=== PATIENT | male | born 1960 | race Caucasian/White ===

== ENCOUNTER 2017-06-13 06:05 | Day surgery (SDC) | payer OTHER ==
[~2017-06-13] VITALS: Ht 188 cm; Wt 108.9 kg
[~2017-06-13 06:05] MED LIST: ASPIRIN EC325 MG PO; CARVEDILOL25 MG PO; HYDROCHLOROTH12.5 MG PO; LISINOPRIL20 MG PO; SIMVASTATIN40 MG PO
--- NOTE | 2017-06-13 08:16 | NUR ---
06/13/17 0816 Yennifer Stokes report from video game animator.
--- NOTE | 2017-06-16 08:06 | OR ---
[facility] [address], [place] [address] Signed DATE OF OPERATION: 06/13/2017 SURGEON: Linda Louis MD PREOPERATIVE DIAGNOSIS: Colon surveillance. POSTOPERATIVE DIAGNOSIS: Hyperplastic polyps x2, minimal diverticular changes sigmoid. PROCEDURE: Total colonoscopy to cecum with cold morcellation polypectomy x2. ANESTHESIA: Intravenous sedation propofol infusion. Nuris Garcias CRNA INDICATION: This 57-year-old white man is a patient of Dr. Colon, and in reasonable health at this time. He has a history of ventricular fibrillation arrest with resuscitation and now has an AICD. The device has never discharged. He is asymptomatic in that regard. He has had no blood per rectum, diarrhea, or constipation problems. He is here for surveillance colonoscopy. The risks of bleeding, infection, and perforation were reviewed with him. He understands and wished to proceed. FINDINGS: The prep was good. Complete colonoscopy was undertaken to the cecum with good visualization of the cecum. There were few diverticula of the sigmoid and left colon and two small polyps probably hyperplastic, one at 25 cm, the other at 50 cm, both were excised with cold morcellation technique. DESCRIPTION OF PROCEDURE: The patient was brought to the endoscopy suite and placed in lateral decubitus position, given intravenous sedation by the space operations with propofol infusion. Full cardiopulmonary monitoring was maintained. The patient demonstrated findings suggestive of sleep apnea. Digital rectal exam was undertaken showing no abnormality. An Olympus video colonoscope was passed into the rectum and manipulated throughout the colon. The prep was quite good. At approximately 50 cm, a small sessile polyp was noted. This was excised with cold morcellation technique. The scope was advanced beyond this to about Electronically Signed By: LINDA LOUIS MD 06/16/17 0806 PATIENT NAME: ELLY BARRERA OPERATIVE REPORT DATE OF : 64 PHYSICIAN: LINDA LOUIS MD REPORT #: [id number] REPORT IS CONFIDENTIAL AND NOT TO BE RELEASED WITHOUT AUTHORIZATION [facility] [address], [place] [address] Signed the hepatic flexure, where progress upon advancing the scope was diminished. He was rotated and leaned back a bit, which allowed for abdominal wall stabilization and the scope was then easily passed to the cecum. The cecum appeared entirely normal as did the ileocecal valve. The scope was withdrawn from that point. Examination throughout showed no sign of abnormality other than a few scattered diverticula of the sigmoid and at 25 cm, a small hyperplastic-appearing polyp. This was excised with cold morcellation technique. Further withdrawal of scope allowed for retroflexed view in the rectum, which was normal. Scope was removed and the patient was taken to recovery in good condition. CONCLUDING DIAGNOSIS: Two small hyperplastic polyps. PLAN: Recommend repeat colonoscopy in 7 years or sooner if clinically indicated. He will return to the ongoing care of Dr. Colon. The patient's and the patient will be counseled to consider for evaluation of sleep apnea given his physiology during the course of this procedure and his body habitus. MD CHELSY Paul/RYAN /[id number] cc: Bilile Colon MD Electronically Signed By: LINDA LOUIS MD 06/16/17 0806 PATIENT NAME: ELLY BARRERA OPERATIVE REPORT DATE OF : 64 PHYSICIAN: LINDA LOUIS MD REPORT #: [id number] REPORT IS CONFIDENTIAL AND NOT TO BE RELEASED WITHOUT AUTHORIZATION
== END 2017-06-13 09:50 | disposition home or self-care (01) ==
LOC: DS 06:05 → OPS 06:05 → DS 08:30 → OPS 08:30
PROVIDERS: Surgery
PROC: 0DBE8ZX Excision of Large Intestine, Via Natural or Artificial Opening Endoscopic, Diagnostic (ICD-10-PCS; principal; 2017-06-13 06:45)
DX: Z12.11 Encounter for screening for malignant neoplasm of colon (principal); K63.5 Polyp of colon; K57.30 Diverticulosis of large intestine without perforation or abscess without bleeding; I49.01 Ventricular fibrillation
CPT/HCPCS: 00810; J2250; J2704; J3010; J7120

== ENCOUNTER 2025-05-03 10:05 | Day surgery (SDC) | payer OTHER ==
[~2025-05-03] VITALS: Ht 188 cm; Wt 111.0 kg
[~2025-05-03 10:05] MED LIST changes: +IBLOOD GLUCOSE TEST STRIP 1 EA TEST VI PRN; +LACTATED RINGER'S 1,000 ML IV SCH; +LIDOCAINE HCL 1% 5 ML SDV INJ ONE; +VITAMIN B12500 MCG PO
[2025-05-03 10:12] VITALS: BP 141/71
[2025-05-03] MEDS ORDERED: LIDOCAINE HCL 2% 5 ML SDV ONE (10:47)
--- NOTE | 2025-05-03 11:43 | NUR ---
CHECKED PATIENT. UPDATED THAT MISSY STILL IN SURGERY. NO NEEDS AT THIS TIME. CALL LIGHT WITHIN REACH.
--- NOTE | 2025-05-03 13:01 | NUR ---
05/03/25 1301 Kaylie Lyle OXYGEN SATURATION 100% ON 4L VIA NC. OXYGEN REDUCED TO 2L VIA NC.
[2025-05-03 13:21] VITALS: BP 142/82
--- NOTE | 2025-05-05 19:47 | OR ---
[facility] [address] [place], [place] [address] Signed DATE OF OPERATION: 05/03/2025 SURGEON: Linda Louis MD PREOPERATIVE DIAGNOSES: 1. History of polyps including hyperplastic polyps 2016. 2. Distant history of sudden cardiac arrest in 2012, now with automatic implantable cardioverter defibrillator in place. POSTOPERATIVE DIAGNOSES: 1. Sigmoid and left-sided diverticulosis. 2. Small polyps x3 (ileocecal valve and sigmoid x2). PROCEDURE: Total colonoscopy to cecum with cold morcellation polypectomy x3. ANESTHESIA: Intravenous sedation, propofol infusion, Savanna Ortega CRNA. 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 Madison Rubin locally. He underwent colonoscopy in 2016, was recommended to have repeat colonoscopy in seven years or so. Findings at that time include hyperplastic polyp at 50 cm and lymphoid aggregate at 25 cm. He has no current symptoms of bleeding, diarrhea, or constipation and no family history of colon cancer. He does have a history of ventricular tachycardia related sudden cardiac arrest in 2012 while at [employer] prompting the need for cardioversion and he survived without incident. He has since had an implanted AICD device. He has had no discharges from it. He is admitted at this time to undergo surveillance colonoscopy understanding the risk of bleeding, infection, and perforation. FINDINGS: The prep was excellent. Complete colonoscopy was undertaken of the cecum. Full intubation of the cecum was accomplished. He had numerous diverticula of the sigmoid and left colon. He had three small polyps including the ileocecal valve and two in the sigmoid, though all were excised with cold morcellation technique. There were no other findings of note. DESCRIPTION OF PROCEDURE: The patient was brought to the endoscopy suite and placed in lateral decubitus position, Electronically Signed By: LINDA LOUIS MD 05/05/251946 PATIENT NAME: ELLY MCDANIEL OPERATIVE REPORT DATE OF : 64 REPORT #: [id number] PHYSICIAN: LINDA LOUIS MD PCP: MADISON RUBIN MD REPORT IS CONFIDENTIAL AND NOT TO BE RELEASED WITHOUT AUTHORIZATION [facility] [address] [place], [place] [address] Signed given intravenous sedation to the point of slurred speech and nystagmus. Digital rectal examination was normal. An Olympus video colonoscope was passed in the rectum and manipulated throughout the colon noting diverticular change of the sigmoid and left colon. Scope was ultimately advanced to the cecum. The ileocecal valve showed one small polyp, which was adenomatous in appearance and that was excised with cold morcellation technique. The scope was withdrawn and examination throughout showed no sign of abnormality into the proximal descending colon where diverticula were once again noted. In the proximal sigmoid, was a small polyp, possibly hyperplastic. It was excised with cold morcellation technique. Further withdrawal showed additional diverticula of the sigmoid. In the distal sigmoid was a small polyp also excised with cold morcellation technique and most likely adenomatous, may be hyperplastic. The rectum appeared normal. Scope was removed. The patient was taken to the recovery room in good condition. CONCLUDING DIAGNOSIS: 1. Polyps x3. 2. Diverticulosis sigmoid and left colon. PLAN: Recommend repeat colonoscopy in 5-7 years or sooner if clinical condition should warrant. He will return to the ongoing care of Dr. Rubin. MD CHELSY Paul/RYAN /[id number] Copies: ~ Electronically Signed By: LINDA LOUIS MD 05/05/25 1947 PATIENT NAME: ELLY MCDANIEL OPERATIVE REPORT DATE OF : 64 REPORT #: [id number] PHYSICIAN: LINDA LOUIS MD PCP: MADISON RUBIN MD REPORT IS CONFIDENTIAL AND NOT TO BE RELEASED WITHOUT AUTHORIZATION
--- NOTE | 2025-05-06 12:31 | PATH ---
[facility] [address] [place], [place] [address] Signed SPECIMEN(S): A ILEOCECAL VALVE POLYP SPECIMEN(S): B SIGMOID POLYP SPECIMEN(S): C RECTOSIGMOID POLYP SPECIMEN SOURCE: A. ILEOCECAL VALVE POLYP B. SIGMOID POLYP C. RECTOSIGMOID POLYP CLINICAL HISTORY: Colon screening, history of colon polyps s/p centimeters, polyps X3, diverticuli FINAL PATHOLOGIC DIAGNOSIS: A. Ileocecal valve polyp: - Colonic mucosa with focal minimal low-grade dysplasia; suggestive of but not diagnostic of tubular adenoma - Multiple tissue levels were examined B. Sigmoid polyp: - Hyperplastic polyp C. Rectosigmoid polyp: - Minimal features suggestive of hyperplastic polyp - Multiple tissue levels were examined BB MICROSCOPIC EXAMINATION: Histologic sections of all submitted blocks are examined by light microscopy. These findings, together with the gross examination, support the pathologic diagnosis. GROSS DESCRIPTION: A. The specimen, labeled and designated "Mendoza, ileocecal valve polyp," is received in formalin and consists of two garcía soft tissue fragments, ranging from 0.2-0.4 cm. Entirely submitted in (A1). B. The specimen, labeled and designated "Mendoza, sigmoid polyp," is received in formalin and consists of two garcía soft tissue fragments, ranging from 0.1-0.2 cm. Entirely submitted in (B1). C. The specimen, labeled and designated "Mendoza, rectosigmoid polyp," is received in formalin and consists of three garcía soft tissue fragments, ranging from 0.1-0.2 cm. Entirely submitted in (C1). VB (under the direct supervision of a pathologist) PATIENT NAME: ELLY MCDANIEL PATHOLOGY DATE OF : 64 REPORT #: [id number] PHYSICIAN: GUNJAN NUÑEZ PCP: KERVIN DENSON MD REPORT IS CONFIDENTIAL AND NOT TO BE RELEASED WITHOUT AUTHORIZATION [facility] [address] [place], [place] [address] Signed The Gross Description was prepared using a voice recognition system. The report was reviewed for accuracy; however, sound-alike word errors, addition and/or deletions may occur. If there is any question about this report, please contact Client Services. ADDITIONAL NOTES: Immunohistochemical and/or in situ hybridization studies if performed in this case included appropriate positive controls that reacted as expected. This test was developed and its performance characteristics determined by [facility]. It has not been cleared or approved by the U.S. Food and Drug Administration. The FDA has determined that such clearance or approval is not necessary. This test is used for clinical purposes. It should not be regarded as investigational or for research. [facility] is certified under the Clinical Laboratory Improvement Amendments of 1988 (CLIA) as qualified to perform high complexity clinical laboratory testing. PERFORMING LABORATORY: Technical component was performed by [facility], [address] [place] [id number] (CLIA# [id number]). Professional interpretation was performed by [facility] - [address] [place] [id number] (CLIA#: [id number]). Diagnostician: Loi Jackson MD Pathologist Electronically Signed 05/06/2025 Copies: ~ PATIENT NAME: ELLY MCDANIEL PATHOLOGY DATE OF : 64 REPORT #: [id number] PHYSICIAN: GUNJAN NUÑEZ PCP: KERVIN DENSON MD REPORT IS CONFIDENTIAL AND NOT TO BE RELEASED WITHOUT AUTHORIZATION
== END 2025-05-03 13:28 | disposition home or self-care (01) ==
LOC: DS 10:05
PROVIDERS: ATTEND Surgery
PROC: 0DBN8ZX Excision of Sigmoid Colon, Via Natural or Artificial Opening Endoscopic, Diagnostic (ICD-10-PCS; 2025-05-03)
PROC: 0DBC8ZX Excision of Ileocecal Valve, Via Natural or Artificial Opening Endoscopic, Diagnostic (ICD-10-PCS; principal; 2025-05-03 11:00)
DX: Z12.11 Encounter for screening for malignant neoplasm of colon (principal); D12.0 Benign neoplasm of cecum; K63.5 Polyp of colon; K57.30 Diverticulosis of large intestine without perforation or abscess without bleeding; I10 Essential (primary) hypertension; Z86.0100 Personal history of colon polyps, unspecified; Z95.810 Presence of automatic (implantable) cardiac defibrillator
CPT/HCPCS: 00811; J2003; J2704; J7121